=== PATIENT | female | born 1975 | race Caucasian/White ===

== ENCOUNTER 2016-09-21 13:19 | Emergency (ER) | payer OTHER ==
--- NOTE | ~2016-09-21 | CR63 ---
[facility] A Service of [facility] & [facility] RADIOLOGY TEXT RESULTS PATIENT: ELOY PICKERING LOCATION: [facility] : 73 UNIT #: [id number] AGE: [address]: Val Salomon SEX: F ORDER DR: [id number] [facility] [address] [place], [place] [address] [id number] E MR#: [id number] Acc #: [id number] NAME: ELOY PICKERING. : 1975 SEX: F STUDY DATE/TIME: 09/21/2016 14:11 UNIT: [facility] ROOM: STUDY DESCRIPTION: CR Chest 2 View Attending Physician: Val Salomon Pa-C Ordering Physician: Val Salomon Pa-C MEDICAL IMAGING REPORT This report is preliminary unless electronic signature is present EXAM PA and lateral chest HISTORY Shortness of air. Cough and back pain for 2 weeks. No injury. FINDINGS PA and lateral examination of the chest upright shows a good expansion of the parenchyma with a normal distribution of the pulmonary vascularity. There is no indication of congestion, effusion, infiltrate, tumor, or nodular density. The pleural reflections and diaphragmatic contours are normal. The cardiac silhouette and mediastinal anatomy is within normal limits. IMPRESSION Normal chest. Dictated by... Evangelista Goode M.D. THIS IS AN ELECTRONICALLY VERIFIED REPORT Evangelista Goode M.D. at 09/21/2016 11:12 PM DFL/pcl TD: 09/21/2016 17:36 JOB #: [id number] MEDICAL IMAGING REPORT Page 1 of 1 COPY
[~2016-09-21 13:19] MED LIST: ALBUTEROL17 GM INH; FLEXERIL PO; IBUPROFEN800 MG PO; KEFLEX500 MG PO; KETOPROFEN PO; MEDROL PO; PEN-VEE K PO; VICODIN 5/500 T1 TAB PO; ZITHROMAX PO; [UNRECOGNIZED DRUG - OTHER]
== END 2016-09-21 15:23 | disposition home or self-care (01) ==
LOC: CFTX 13:19 → CED 13:19 → CFTX 13:58
DX: S29.012A Strain of muscle and tendon of back wall of thorax, initial encounter (principal); I10 Essential (primary) hypertension; F17.210 Nicotine dependence, cigarettes, uncomplicated; Z88.5 Allergy status to narcotic agent; X58.XXXA Exposure to other specified factors, initial encounter
CPT/HCPCS: 71020; 99283